=== PATIENT | female | born 1980 | race Caucasian/White ===

== ENCOUNTER → 2020-12-24 | Outpatient (CLI) | payer OTHER | LOC: COL.RAD 08:11 | DX: N97.9 Female infertility, unspecified (principal) | CPT/HCPCS: Q9967 ==

== ENCOUNTER → 2022-02-20 | Outpatient (CLI) | payer OTHER | LOC: COL.LAB 12:53 | DX: Z32.00 Encounter for pregnancy test, result unknown (principal) ==

== ENCOUNTER → 2022-03-21 | Outpatient (CLI) | payer OTHER | LOC: COL.LAB 11:18 | DX: Z32.00 Encounter for pregnancy test, result unknown (principal) ==